=== PATIENT | male | born 1930 | race Caucasian/White ===

== ENCOUNTER 2018-12-22 23:53 | Emergency (ER) | payer MEDICARE, OTHER ==
[2018-12-23] MEDS ORDERED: BACITRACIN/POLYMYXIN 0.9 GM OINT (00:26)
== END 2018-12-23 01:54 | disposition home or self-care (01) ==
LOC: E/R 23:53
DX: S91.114A Laceration without foreign body of right lesser toe(s) without damage to nail, initial encounter (principal); I10 Essential (primary) hypertension; W23.0XXA Caught, crushed, jammed, or pinched between moving objects, initial encounter; Y92.9 Unspecified place or not applicable; Z79.01 Long term (current) use of anticoagulants; Z86.73 Personal history of transient ischemic attack (TIA), and cerebral infarction without residual deficits; Z87.891 Personal history of nicotine dependence
CPT/HCPCS: 99283